=== PATIENT | female | born 1980 | race Two or more races ===

== ENCOUNTER 2017-08-15 12:40 | Inpatient (IN) | payer OTHER ==
[~2017-08-15] VITALS: Ht 157.5 cm; Wt 63.5 kg
== END 2017-08-18 14:10 | disposition home or self-care (01) | DRG 355 ==
LOC: ER 12:40 → SURH 23:21
PROVIDERS: Colon & Rectal Surgery
PROC: BW21Y0Z Computerized Tomography (CT Scan) of Abdomen and Pelvis using Other Contrast, Unenhanced and Enhanced (ICD-10-PCS; 2017-08-15)
PROC: BW21Y0Z Computerized Tomography (CT Scan) of Abdomen and Pelvis using Other Contrast, Unenhanced and Enhanced (ICD-10-PCS; 2017-08-15)
PROC: BW40ZZZ Ultrasonography of Abdomen (ICD-10-PCS; 2017-08-15)
PROC: 0WQF4ZZ Repair Abdominal Wall, Percutaneous Endoscopic Approach (ICD-10-PCS; principal; 2017-08-16 10:00)
DX: K46.0 Unspecified abdominal hernia with obstruction, without gangrene (principal); F32.89 Other specified depressive episodes; D35.2 Benign neoplasm of pituitary gland

== ENCOUNTER 2018-01-19 10:53 | Outpatient (CLI) | payer OTHER | END 2018-01-19 11:00 | disposition home or self-care (01) | LOC: SONOGRAMA 10:53 | DX: E04.1 Nontoxic single thyroid nodule (principal) ==